=== PATIENT | female | born 1985 | race Caucasian/White ===

== ENCOUNTER 2023-04-11 23:01 | Emergency (ER) | payer MEDICAID, SELFPAY ==
[2023-04-11 23:02] VITALS: BP 133/85; PULSE 86; RESP 16; TEMP 36.7; O2SAT 95; BMI 26.4
--- NOTE | 2023-04-11 23:45 | HMH.EDGENADL ---
Discharge Plan Disposition Patient Disposition: Home, Self-Care Referrals Follow up/Referrals: Provider,Referral, MD [Primary Care Provider] - See instructions Activity Restrictions/Add. Instructions Additional Instructions/Restrictions: Please follow-up with your primary care provider. Please return to the emergency department if you develop any new or worsening symptoms or become concerned for your health. Clinical Impressions Clinical Impression: Finger laceration Qualifiers: Encounter type: initial encounter Finger: middle finger Damage to nail status: without damage Foreign body presence: without foreign body Laterality: left Qualified Code(s): S61.213A - Laceration without foreign body of left middle finger without damage to nail, initial encounter Stand Alone Forms Stand Alone Forms: Work/School Release Instructions Patient Instructions: DI for Laceration Repair Discharge ED Provider: Nick Neil Adult HPI General Chief complaint: Wound/Laceration Stated complaint: Ao12/18 finger lac Time Seen by Provider: 04/11/23 23:10 Mode of Arrival: Ambulatory Source of Information: Patient Limitations: No Limitations Description of Symptoms (Recalled from ER Triage Doc. by RN): pt reports trying to open pack of cheese with a knife and it slipped and cut left middle finger, bleeding controlled History of Present Illness HPI narrative: Patient reports that she cut her left middle finger with a knife while trying to open cheese. Denies any other injuries. Hemostatic on presentation Related Data Allergies Allergy/AdvReac Type Severity Reaction Status Date / Time Iodinated Contrast Media Allergy Verified 04/11/23 23:15 Penicillins Allergy Verified 04/11/23 23:15 [facility] Disclaimer: The information contained in this section may have been updated after the patient was seen, as this information can be updated by other users. Social History Smoking Status: Current every day smoker alcohol intake: never current occupational status: employed Travel in the last 8 weeks: None ROS Obtained: Yes All systems reviewed & no additional complaints except as documented Physical Exam General General appearance: alert and in no apparent distress Head Head exam: atraumatic and normocephalic Eye Eye exam: Present normal appearance, PERRL and EOMI ENT ENT exam: Present normal oropharynx and normal external ear exam Neck Neck exam: Present normal inspection and full ROM Chest Chest inspection: Present normal inspection and symmetric chest wall rise; Absent tenderness Respiratory Respiratory exam: Present normal lung sounds bilaterally; Absent respiratory distress Cardiovascular Cardiovascular exam: Present regular rate and normal rhythm Abdominal Exam Abdominal exam: Present soft; Absent distention, tenderness or guarding Extremities Exam Extremities exam: Present other (Fairly superficial laceration to the radial aspect of the mid left third distal phalanx. Wound explored, no evidence of foreign body or involvement of the deep structures. Intact neurovascular and tendon exam.); Absent edema or joint swelling Back Exam Back exam: Present normal inspection; Absent tenderness Neurological Exam Neurological exam: Present alert and oriented X3; Absent motor sensory deficit Psychiatric Psychiatric exam: Present normal affect and normal mood Skin Skin exam: Present warm, dry and normal color Lymphatic Lymphatic Findings: no adenopathy Medical Decision Making Medical Records Medical records reviewed: Yes I reviewed the patient's medical records. [place] Inquiry Pt receiving controlled substance: No [place] was queried for this patient: No Vital Signs: 04/11/23 23:02 04/12/23 00:05 Temperature 98.1 F 97.5 F L Temperature Source Oral Oral Pulse Rate 72 Pulse Rate [Right] 86 Respiratory Rate 16 16 Blood Pressure 136/82 Blood Pressure [Right Arm] 133/85 Blood Pressure Mean [Right Arm]
[2023-04-12 00:05] VITALS: BP 136/82; PULSE 72; RESP 16; TEMP 36.4; O2SAT 98
== END 2023-04-12 00:07 | disposition home or self-care (01) ==
PROVIDERS: Emergency Provider Emergency Medicine
DX: S61.213A Laceration without foreign body of left middle finger without damage to nail, initial encounter (principal); F17.200 Nicotine dependence, unspecified, uncomplicated; W26.0XXA Contact with knife, initial encounter
CPT/HCPCS: 12001; 90471; 90715; 99283

== ENCOUNTER 2023-04-12 15:51 | Emergency (ER) | payer MEDICAID, SELFPAY ==
[2023-04-12 16:55] VITALS: BP 142/98; PULSE 88; RESP 18; TEMP 36.8; O2SAT 97; BMI 26.4
--- NOTE | 2023-04-12 17:37 | EXP.UTC ---
Discharge Plan Disposition Patient Disposition: Home, Self-Care Condition: Good Prescriptions Prescriptions: New ibuprofen 600 mg tablet 600 mg PO QID PRN (Reason: pain) Qty: 30 0RF Referrals Follow up/Referrals: Provider,Referral, MD [Primary Care Provider] - See instructions Activity Restrictions/Add. Instructions Additional Instructions/Restrictions: Note for yesterday and today provided Clinical Impressions Clinical Impression: Pain of ovary Stand Alone Forms Stand Alone Forms: Work/School Release Instructions Patient Instructions: DI for Abdominal Pain-Adult Discharge ED Provider: Swathi Black [facility] HPI General Stated complaint: rt side pain, BURNS Mode of Arrival: Ambulatory Source of Information: Patient Limitations: No Limitations Time Seen by Provider: 04/12/23 17:20 Description of Symptoms (Recalled from Triage Doc. by RN): Right pelvic pain , and BURNS HEENT Symptoms (Recalled from RN notes): Yes Resp Symptoms (Recalled from RN notes): No Skin Symptoms (Recalled from RN notes): No MS Symptoms (Recalled from RN notes): No Functional Status (Recalled from RN notes): n/a History of Present Illness Provider Complaint: Pt reports that she has had right sided ovary pain for the past 2 days. She reports that she often has cysts that rupture. She states that she went to the ER yesterday, but left as they were too busy. She states that she went back to the ER last night as she cut her finger and had to have it glued. She reports that she did not tell them about the pelvic pain as she forgot. Related Data Previous Rx's Medication Instructions Recorded ibuprofen 600 mg tablet 600 mg PO QID PRN pain #30 tabs 04/12/23 Allergies Allergy/AdvReac Type Severity Reaction Status Date / Time Iodinated Contrast Media Allergy Verified 04/12/23 17:04 Penicillins Allergy Verified 04/12/23 17:04 Worker's Comp Is this a Worker's Comp case?: No [facility] Disclaimer: The information contained in this section may have been updated after the patient was seen, as this information can be updated by other users. Medical History (Updated 04/12/23 @ 17:44 by Swathi Black APRN) Anxiety Asthma GERD (gastroesophageal reflux disease) Surgical History (Updated 04/12/23 @ 17:07 by Tosin Kulkarni RN) History of delivery History of tonsillectomy Social History (Updated 04/12/23 @ 03:40 by Nick Neil MD) Smoking Status: Current every day smoker alcohol intake: never current occupational status: employed Travel in the last 8 weeks: None ROS Obtained: Yes All systems reviewed & no additional complaints except as documented Constitutional Constitutional: Reports system reviewed and no additional complaints, except as documented and Reports headache(s) Eyes Eyes: Reports system reviewed and no additional complaints, except as documented ENT Ears, Nose, Mouth, and Throat: Reports system reviewed and no additional complaints, except as documented and Reports headache(s) Cardiovascular Cardiovascular: Reports system reviewed and no additional complaints, except as documented Respiratory Respiratory: Reports system reviewed and no additional complaints, except as documented Gastrointestinal Gastrointestingal: Reports system reviewed and no additional complaints, except as documented Genitourinary Female Genitourinary: Reports system reviewed and no additional complaints, except as documented and Reports pelvic pain Musculoskeletal Musculoskeletal: Reports system reviewed and no additional complaints, except as documented Integumentary/Breasts Skin/Breast: Reports system reviewed and no additional complaints, except as documented Neurologic Neurologic: Reports system reviewed and no additional complaints, except as documented and Reports headache(s) Endocrine Endocrine: Reports system reviewed and no additional complaints, except as documented Hematologic/Lymphatic Henatologic/Lymp
[2023-04-12 17:57] VITALS: BP 135/79; PULSE 88; RESP 18; TEMP 36.8; O2SAT 97
== END 2023-04-12 17:55 | disposition home or self-care (01) ==
PROVIDERS: Emergency Provider Nurse Practitioner Family
DX: R10.2 Pelvic and perineal pain (principal); N94.89 Other specified conditions associated with female genital organs and menstrual cycle; R51.9 Headache, unspecified; F17.210 Nicotine dependence, cigarettes, uncomplicated; K21.9 Gastro-esophageal reflux disease without esophagitis; J45.909 Unspecified asthma, uncomplicated
CPT/HCPCS: 99204; 99212; G0463

== ENCOUNTER 2023-05-23 12:30 | Emergency (ER) | payer MEDICAID, SELFPAY ==
[2023-05-23 13:00] VITALS: BP 140/89; PULSE 68; RESP 19; TEMP 36.9; O2SAT 99
[2023-05-23 13:05] VITALS: BP 140/89; PULSE 68; RESP 19; TEMP 36.9; O2SAT 99; BMI 27.9
--- NOTE | 2023-05-23 13:16 | EXP.UTC ---
Discharge Plan Disposition Patient Disposition: Home, Self-Care Condition: Good Prescriptions Prescriptions: New ondansetron 4 mg tablet,disintegrating 4 mg PO Q8H PRN (Reason: nausea and vomiting) Qty: 10 0RF No Action sertraline 25 mg tablet 50 mg PO DAILY Qty: 90 0RF Slynd 4 mg (28) tablet 1 tab PO DAILY Qty: 28 12RF esomeprazole magnesium [Nexium] 20 mg capsule,delayed release(DR/EC) 20 mg PO DAILY Qty: 90 0RF Referrals Follow up/Referrals: Twyla Childs APRN [Primary Care Provider] - See instructions Activity Restrictions/Add. Instructions Additional Instructions/Restrictions: Drink extra fluids with and between meals. If you have difficulty drinking, try very small amounts of water or suck on ice chips. ? Avoid fruit juices, as these do not replace minerals and can actually increase diarrhea. ? Children and adults can use sports drinks to replenish electrolytes. Younger children and infants should use products formulated for children, like oral rehydration solutions. ? Eat food in small amounts and let your stomach recover. ? Get lots of rest. You may feel tired or weak. ? No greasy or fried foods for the next 24-48 hours BRAT diet Bananas Rice Apples and Bonesteel ? Make sure to drink plenty of liquids ? Return if needed ? Straight to ER if any life threatening symptoms ? Zofran as prescribed ? Follow up with family doctor in the next 48-72 hours if no improvement or any worsening of symptoms Clinical Impressions Clinical Impression: Nausea vomiting and diarrhea Stand Alone Forms Stand Alone Forms: Work/School Release Instructions Patient Instructions: Nausea and Vomiting-Adult, Diarrhea Discharge ED Provider: Jennifer Wilder [facility] General Stated complaint: vomiting, diarrea Mode of Arrival: Ambulatory Source of Information: Patient Limitations: No Limitations Time Seen by Provider: 05/23/23 13:16 Description of Symptoms (Recalled from Triage Doc. by RN): PATIENT C/O VOMITING AND DIARRHEA SINCE LAST NIGHT HEENT Symptoms (Recalled from RN notes): No Resp Symptoms (Recalled from RN notes): No Skin Symptoms (Recalled from RN notes): No MS Symptoms (Recalled from RN notes): No Functional Status (Recalled from RN notes): WNL History of Present Illness Provider Complaint: Patient states that she started last night with N/V/D States that she wasnt able to go to work this morning and they told her that she had to get a doctors note so she came in States last time she vomited was last night but still having some diarrhea Related Data Previous Rx's Medication Instructions Recorded esomeprazole magnesium 20 mg 20 mg PO DAILY #90 caps 04/26/23 capsule,delayed release (Nexium) Slynd 4 mg (28) tablet 1 tab PO DAILY #28 tabs 05/19/23 (drospirenone (contraceptive)) sertraline 25 mg tablet 50 mg PO DAILY #90 tabs 05/19/23 ondansetron 4 mg disintegrating 4 mg PO Q8H PRN nausea and 05/23/23 tablet vomiting #10 tabs Allergies Allergy/AdvReac Type Severity Reaction Status Date / Time latex Allergy Mild Rash Verified 05/19/23 13:12 Iodinated Contrast Media Allergy Verified 05/19/23 13:12 Penicillins Allergy Verified 05/19/23 13:12 Worker's Comp Is this a Worker's Comp case?: No [facility] Disclaimer: The information contained in this section may have been updated after the patient was seen, as this information can be updated by other users. Medical History Abnormal uterine bleeding Anxiety Asthma Finger laceration GERD (gastroesophageal reflux disease) Surgical History History of delivery History of tonsillectomy Family History Mother Hypertension Father , age 60 Hypertension COPD (chronic obstructive pulmonary disease) CHF (congestive heart failure) Social History Smoking Status: Current every day smoker alcohol intake: never current occupational status: employed Travel in the last 8 weeks: None ROS Obtained: Yes All systems reviewed & no additional complaints except as documented and Yes Systems reviewed as appropriate & no additional complaints except as documented Constitutional Constitutional: Reports system reviewed and no additional complaints, except as documented and Reports as per HPI ENT Ears, Nose, Mouth, and Throat: Reports system reviewed and no additional complaints, except as documented and Reports as per HPI Cardiovascular Cardiovascular: Reports system reviewed and no additional complaints, except as documented and Reports as per HPI Respiratory Respiratory: Reports system reviewed and no additional complaints, except as documented and Reports as per HPI Gastrointestinal Gastrointestingal: Reports system reviewed and no additional complaints, except as documented, as per HPI, diarrhea, nausea and vomiting; Denies abdominal pain Physical Exam General General appearance: alert and in no apparent distress ENT ENT exam: Present mucous membranes moist Respiratory Respiratory exam: Present normal lung sounds bilaterally; Absent respiratory distress or wheezes Cardiovascular Cardiovascular exam: Present regular rate, normal rhythm and normal heart sounds Abdominal Exam Abdominal exam: Present soft and normal bowel sounds; Absent distention or tenderness Neurological Exam Neurological exam: Present alert, oriented X3 and normal gait Medical Decision Making [place] Inquiry Pt receiving controlled substance: No [place] was queried for this patient: No Vital Signs: 05/23/23 13:05 Temperature 98.5 F Temperature Source Oral Pulse Rate [Left Brachial] 68 Respiratory Rate 19 Blood Pressure [Left Arm] 140/89 Blood Pressure Mean [Left Arm] 106 Blood Pressure Source [Left Arm] Automatic Cuff Blood Pressure Position [Left Arm] Sitting 02 Sat by Pulse Oximetry 99 Oxygen Delivery Method Room Air Medical Decision Narrative: Patient states that she has taken zofran without complications or reactions
== END 2023-05-23 13:33 | disposition home or self-care (01) ==
PROVIDERS: Emergency Provider Nurse Practitioner; PCP Nurse Practitioner Family
DX: R11.2 Nausea with vomiting, unspecified (principal); R19.7 Diarrhea, unspecified; K21.9 Gastro-esophageal reflux disease without esophagitis; F17.210 Nicotine dependence, cigarettes, uncomplicated
CPT/HCPCS: 99212; 99214; G0463

== ENCOUNTER 2023-05-25 15:42 | Emergency (ER) | payer MEDICAID, SELFPAY ==
--- NOTE | 2023-05-25 15:48 | EXP.UTC ---
Discharge Plan Disposition Patient Disposition: Home, Self-Care Condition: Good Prescriptions Prescriptions: New promethazine 25 mg tablet 25 mg PO TID PRN (Reason: nausea and vomiting) Qty: 20 0RF methylprednisolone 4 mg Tablets,Dose Pack 4 mg PO DIRECTED 6 Days Qty: 21 0RF Rx Instructions: Take 1 pack as directed for 6 days No Action sertraline 25 mg tablet 50 mg PO DAILY Qty: 90 0RF Slynd 4 mg (28) tablet 1 tab PO DAILY Qty: 28 12RF esomeprazole magnesium [Nexium] 20 mg capsule,delayed release(DR/EC) 20 mg PO DAILY Qty: 90 0RF Referrals Follow up/Referrals: Twyla Childs APRN [Primary Care Provider] - See instructions Activity Restrictions/Add. Instructions Additional Instructions/Restrictions: Start listing zofran (ondesetron) on your allergy list. Stop taking the zofran. I sent in a prescription for promethazine (phenergran) if you still need medication for nausea. Follow up with your regular doctor. GO TO THE ER FOR ANY WORSENING SYMPTOMS OR CONCERNS Clinical Impressions Clinical Impression: Adverse drug reaction, Allergic reaction Stand Alone Forms Stand Alone Forms: Work/School Release Instructions Patient Instructions: DI for Adverse Drug Reaction -- Allergic Discharge ED Provider: Waylon Bustamante [facility] General Stated complaint: rash Time Seen by Provider: 05/25/23 15:47 History of Present Illness Provider Complaint: She was diagnosed with gastroenteritis 2 days ago. She was prescribed zofran for nausea. She states that after she started taking the zofran she started developing an itchy rash on her body. She states that her gastroenteritis symptoms have resolved. She denies any shortness of breath, chest pain, mouth or throat swelling. Related Data Previous Rx's Medication Instructions Recorded esomeprazole magnesium 20 mg 20 mg PO DAILY #90 caps 04/26/23 capsule,delayed release (Nexium) Slynd 4 mg (28) tablet 1 tab PO DAILY #28 tabs 05/19/23 (drospirenone (contraceptive)) sertraline 25 mg tablet 50 mg PO DAILY #90 tabs 05/19/23 methylprednisolone 4 mg tablets in 4 mg PO DIRECTED 6 days #21 tabs 05/25/23 a dose pack promethazine 25 mg tablet 25 mg PO TID PRN nausea and 05/25/23 vomiting #20 tabs Allergies Allergy/AdvReac Type Severity Reaction Status Date / Time latex Allergy Mild Rash Verified 05/25/23 16:38 ondansetron Allergy Mild Rash Verified 05/25/23 16:57 Iodinated Contrast Media Allergy Verified 05/25/23 16:38 Penicillins Allergy Verified 05/25/23 16:38 [facility] Disclaimer: The information contained in this section may have been updated after the patient was seen, as this information can be updated by other users. Medical History Abnormal uterine bleeding Anxiety Asthma Finger laceration GERD (gastroesophageal reflux disease) Surgical History History of delivery History of tonsillectomy Family History Mother Hypertension Father , age 60 Hypertension COPD (chronic obstructive pulmonary disease) CHF (congestive heart failure) Social History Smoking Status: Current every day smoker alcohol intake: never current occupational status: employed Travel in the last 8 weeks: None ROS Obtained: Yes All systems reviewed & no additional complaints except as documented Constitutional Constitutional: Denies chills and Denies fever(s) Eyes Eyes: Denies eye discharge ENT Ears, Nose, Mouth, and Throat: Denies dizziness, Denies otalgia and Denies sore throat Cardiovascular Cardiovascular: Denies chest pain Respiratory Respiratory: Denies shortness of breath, Denies chest congestion, Denies cough, Denies stridor and Denies wheezing Gastrointestinal Gastrointestingal: Denies nausea or vomiting Musculoskeletal Musculoskeletal: Reports system reviewed and no additional complaints, except as documented and Denies arthralgias Integumentary/Breasts Skin/Breast: Reports as per HPI and Reports rash Neurologic Neurologic: Denies dizziness and Denies paresthesias Allergic/Immunologic Allergic/Immunologic: Denies wheezing Physical Exam General General appearance: alert and in no apparent distress Head Head exam: atraumatic, normocephalic and normal inspection Eye Eye exam: Present normal appearance, PERRL and EOMI ENT ENT exam: Present normal exam, normal oropharynx, mucous membranes moist, TM's normal bilaterally and normal external ear exam Neck Neck exam: Present normal inspection, full ROM and trachea midline; Absent meningismus or lymphadenopathy Chest Chest inspection: Present normal inspection and symmetric chest wall rise; Absent tenderness Respiratory Respiratory exam: Present normal lung sounds bilaterally; Absent respiratory distress Cardiovascular Cardiovascular exam: Present regular rate and normal rhythm; Absent JVD Abdominal Exam Abdominal exam: Present soft and normal bowel sounds; Absent distention, tenderness or guarding Extremities Exam Extremities exam: Present normal inspection, full ROM and normal capillary refill; Absent calf tenderness Back Exam Back exam: Present normal inspection; Absent tenderness Neurological Exam Neurological exam: Present alert and oriented X3 Psychiatric Psychiatric exam: Present normal affect and normal mood Skin Skin exam: Present rash (She has a maculopapular rash on her trunk, neck, and legs. no open wounds, no drainage. ) Lymphatic Lymphatic Findings: no adenopathy Medical Decision Making Medical Records Medical records reviewed: No I reviewed the patient's medical records. [place] Inquiry Pt receiving controlled substance: No
[2023-05-25 16:30] VITALS: BP 116/74; PULSE 84; RESP 18; TEMP 36.8; O2SAT 95; BMI 27.8
[2023-05-25 17:10] VITALS: BP 116/74; PULSE 84; RESP 18; TEMP 36.8; O2SAT 95
== END 2023-05-25 17:10 | disposition home or self-care (01) ==
PROVIDERS: Emergency Provider Nurse Practitioner Family; PCP Nurse Practitioner Family
DX: T50.995A Adverse effect of other drugs, medicaments and biological substances, initial encounter (principal); L50.0 Allergic urticaria; R11.0 Nausea
CPT/HCPCS: 99212; 99214; G0463

== ENCOUNTER 2023-06-09 11:38 | Emergency (ER) | payer MEDICAID, SELFPAY ==
[2023-06-09 11:45] VITALS: BP 145/80; PULSE 80; RESP 21; TEMP 36.8; O2SAT 95; BMI 27.1
--- NOTE | 2023-06-09 11:57 | EXP.UTC ---
Discharge Plan Disposition Patient Disposition: Home, Self-Care Condition: Good Prescriptions Prescriptions: New ibuprofen [ibuprofen] 600 mg tablet 600 mg PO Q6HP PRN (Reason: Mild Pain) Qty: 30 0RF No Action sertraline 25 mg tablet 50 mg PO DAILY Qty: 90 0RF Slynd 4 mg (28) tablet 1 tab PO DAILY Qty: 28 12RF esomeprazole magnesium [Nexium] 20 mg capsule,delayed release(DR/EC) 20 mg PO DAILY Qty: 90 0RF promethazine 25 mg tablet 25 mg PO TID PRN (Reason: nausea and vomiting) Qty: 20 0RF methylprednisolone 4 mg Tablets,Dose Pack 4 mg PO DIRECTED 6 Days Qty: 21 0RF Rx Instructions: Take 1 pack as directed for 6 days Referrals Follow up/Referrals: Robbie Nunez DO [Staff Physician] - See instructions Twyla Childs APRN [Primary Care Provider] - See instructions Activity Restrictions/Add. Instructions Additional Instructions/Restrictions: Rest the extremities, Elevate the extremities as tolerated while you are resting. Take ibuprofen for pain. I sent in a prescription to your pharmacy. Follow up with Dr. Nunez (orthopedics) if you continue to have symptoms. I put in a referral but you need to call his office and schedule an appointment. Follow up with your regular doctor. GO TO THE ER FOR ANY WORSENING SYMPTOMS Clinical Impressions Clinical Impression: Right thigh pain, Left knee pain Stand Alone Forms Stand Alone Forms: Work/School Release Instructions Patient Instructions: DI for Leg Pain, Ibuprofen Discharge ED Provider: Waylon Bustamante [facility] General Stated complaint: pain in upper thigh rt leg, and left knee Mode of Arrival: Ambulatory Source of Information: Patient Limitations: No Limitations Time Seen by Provider: 06/09/23 11:57 Description of Symptoms (Recalled from Triage Doc. by RN): PATIENT STATES SHE WOKE UP YESTERDAY MORNING WITH PAIN/TIGHTNESS IN LEFT KNEE AND RIGHT UPPER LEG. NO KNOWN INJURY HEENT Symptoms (Recalled from RN notes): No Resp Symptoms (Recalled from RN notes): No Skin Symptoms (Recalled from RN notes): No MS Symptoms (Recalled from RN notes): Yes Functional Status (Recalled from RN notes): WNL History of Present Illness Provider Complaint: She states that since yesterday she has had left knee and right anterior thigh pain. She denies any falls or known injuries, but she has been having to work harder than normal and lift more at her job. She denies any other complaints. Related Data Previous Rx's Medication Instructions Recorded esomeprazole magnesium 20 mg 20 mg PO DAILY #90 caps 04/26/23 capsule,delayed release (Nexium) Slynd 4 mg (28) tablet 1 tab PO DAILY #28 tabs 05/19/23 (drospirenone (contraceptive)) sertraline 25 mg tablet 50 mg PO DAILY #90 tabs 05/19/23 methylprednisolone 4 mg tablets in 4 mg PO DIRECTED 6 days #21 tabs 05/25/23 a dose pack promethazine 25 mg tablet 25 mg PO TID PRN nausea and 05/25/23 vomiting #20 tabs ibuprofen 600 mg tablet 600 mg PO Q6HP PRN Mild Pain #30 06/09/23 tabs Allergies Allergy/AdvReac Type Severity Reaction Status Date / Time latex Allergy Mild Rash Verified 05/25/23 16:38 ondansetron Allergy Mild Rash Verified 05/25/23 16:57 Iodinated Contrast Media Allergy Verified 05/25/23 16:38 Penicillins Allergy Verified 05/25/23 16:38 Worker's Comp Is this a Worker's Comp case?: No [facility] Disclaimer: The information contained in this section may have been updated after the patient was seen, as this information can be updated by other users. Medical History Abnormal uterine bleeding Anxiety Asthma Finger laceration GERD (gastroesophageal reflux disease) Surgical History History of delivery History of tonsillectomy Family History Mother Hypertension Father , age 60 Hypertension COPD (chronic obstructive pulmonary disease) CHF (congestive heart failure) Social History Smoking Status: Current every day smoker alcohol intake: never current occupational status: employed Travel in the last 8 weeks: None ROS Obtained: Yes All systems reviewed & no additional complaints except as documented Constitutional Constitutional: Denies chills and Denies fever(s) Eyes Eyes: Denies eye discharge ENT Ears, Nose, Mouth, and Throat: Denies dizziness, Denies otalgia and Denies sore throat Cardiovascular Cardiovascular: Denies chest pain Respiratory Respiratory: Denies shortness of breath, Denies chest congestion, Denies cough, Denies stridor and Denies wheezing Gastrointestinal Gastrointestingal: Denies nausea or vomiting Musculoskeletal Musculoskeletal: Reports as per HPI Integumentary/Breasts Skin/Breast: Denies rash Neurologic Neurologic: Denies dizziness and Denies paresthesias Allergic/Immunologic Allergic/Immunologic: Denies wheezing Physical Exam General General appearance: alert and in no apparent distress Head Head exam: atraumatic, normocephalic and normal inspection Eye Eye exam: Present normal appearance, PERRL and EOMI ENT ENT exam: Present normal exam, normal oropharynx, mucous membranes moist, TM's normal bilaterally and normal external ear exam Neck Neck exam: Present normal inspection, full ROM and trachea midline; Absent meningismus or lymphadenopathy Chest Chest inspection: Present normal inspection and symmetric chest wall rise; Absent tenderness Respiratory Respiratory exam: Present normal lung sounds bilaterally; Absent respiratory distress Cardiovascular Cardiovascular exam: Present regular rate and normal rhythm; Absent JVD Abdominal Exam Abdominal exam: Present soft and normal bowel sounds; Absent distention, tenderness or guarding Extremities Exam Extremities exam: Present normal inspection, full ROM and normal capillary refill; Absent calf tenderness Expanded Lower Extremity Exam Left: Hip/Pelvis exam: Present normal inspection and full ROM; Absent tenderness Upper leg exam: Present normal inspection and full ROM; Absent tenderness Knee exam: Present normal inspection, full ROM and knee extension intact; Absent tenderness Lower leg exam: Present normal inspection, full ROM and Achilles tendon intact; Absent tenderness or Homans' sign Ankle exam: Present normal inspection and full ROM; Absent tenderness Foot/toe exam: Present normal inspection and full ROM; Absent tenderness Neurovascular/Tendon exam: Present normal capillary refill; Absent pulse deficit, motor deficit, sensory deficit, tendon deficit or extremity cold to touch Gait: observed and normal Right: Hip/Pelvis exam: Present normal inspection and full ROM; Absent tenderness Upper leg exam: Present normal inspection and full ROM; Absent tenderness Knee exam: Present normal inspection, full ROM and knee extension intact; Absent tenderness Lower leg exam: Present normal inspection, full ROM and Achilles tendon intact; Absent tenderness or Homans' sign Ankle exam: Present normal inspection and full ROM; Absent tenderness Foot/toe exam: Present normal inspection and full ROM; Absent tenderness Neurovascular/Tendon exam: Present normal capillary refill; Absent pulse deficit, motor deficit, sensory deficit, tendon deficit or extremity cold to touch Gait: observed and normal Back Exam Back exam: Present normal inspection; Absent tenderness Neurological Exam Neurological exam: Present alert and oriented X3 Psychiatric Psychiatric exam: Present normal affect and normal mood Skin Skin exam: Present warm, dry, intact and normal color Lymphatic Lymphatic Findings: no adenopathy Medical Decision Making Medical Records Medical records reviewed: No I reviewed the patient's medical records. [place] Inquiry Pt receiving controlled substance: No Vital Signs: 06/09/23 11:45 Temperature 98.3 F Temperature Source Oral Pulse Rate [Left Brachial] 80 Respiratory Rate 21 Blood Pressure [Left Arm] 145/80 H Blood Pressure Mean [Left Arm] 101 Blood Pressure Source [Left Arm] Automatic Cuff Blood Pressure Position [Left Arm] Sitting 02 Sat by Pulse Oximetry 95 Oxygen Delivery Method Room Air
[2023-06-09 12:40] VITALS: BP 145/80; PULSE 80; RESP 21; TEMP 36.8; O2SAT 95
== END 2023-06-09 12:43 | disposition home or self-care (01) ==
PROVIDERS: Emergency Provider Nurse Practitioner Family; PCP Nurse Practitioner Family
DX: M25.562 Pain in left knee (principal); M79.651 Pain in right thigh; F17.210 Nicotine dependence, cigarettes, uncomplicated; K21.9 Gastro-esophageal reflux disease without esophagitis
CPT/HCPCS: 99212; 99214; G0463

== ENCOUNTER 2023-07-07 17:57 | Emergency (ER) | payer MEDICAID, SELFPAY ==
[2023-07-07 18:20] VITALS: BP 128/76; PULSE 81; RESP 20; TEMP 37.1; O2SAT 97; BMI 27.1
--- NOTE | 2023-07-07 18:31 | EXP.UTC ---
Discharge Plan Disposition Patient Disposition: Home, Self-Care Condition: Good Prescriptions Prescriptions: New ibuprofen [IBU] 800 mg tablet 800 mg PO Q8HP PRN (Reason: Moderate Pain) Qty: 30 0RF benzonatate 100 mg capsule 100 mg PO TIDP PRN (Reason: Cough) Qty: 30 0RF promethazine 25 mg tablet 25 mg PO TID PRN (Reason: nausea and vomiting) Qty: 20 0RF No Action sertraline 25 mg tablet 50 mg PO DAILY Qty: 90 0RF Slynd 4 mg (28) tablet 1 tab PO DAILY Qty: 28 12RF esomeprazole magnesium [Nexium] 20 mg capsule,delayed release(DR/EC) 20 mg PO DAILY Qty: 90 0RF promethazine 25 mg tablet 25 mg PO TID PRN (Reason: nausea and vomiting) Qty: 20 0RF ibuprofen [ibuprofen] 600 mg tablet 600 mg PO Q6HP PRN (Reason: Mild Pain) Qty: 30 0RF Referrals Follow up/Referrals: Twyla Childs APRN [Primary Care Provider] - See instructions Activity Restrictions/Add. Instructions Additional Instructions/Restrictions: Drink plenty of fluids. Water or an electrolyte sports drink like gatorade would be best. Take tylenol or ibuprofen for pain or fever. Take the medications as directed. Follow up with your regular doctor. GO TO THE ER FOR ANY WORSENING SYMPTOMS Clinical Impressions Clinical Impression: Acute viral syndrome, Gastroenteritis Stand Alone Forms Stand Alone Forms: Work/School Release Instructions Patient Instructions: DI for Viral Gastroenteritis -- Adult, Promethazine Discharge ED Provider: Waylon Bustamante [facility] General Stated complaint: fever,vomiting Mode of Arrival: Ambulatory Source of Information: Patient Limitations: No Limitations Time Seen by Provider: 07/07/23 18:31 Description of Symptoms (Recalled from Triage Doc. by RN): PATIENT C/O VOMITING AND FEVER THAT STARTED THIS MORNING HEENT Symptoms (Recalled from RN notes): No Resp Symptoms (Recalled from RN notes): No Skin Symptoms (Recalled from RN notes): No MS Symptoms (Recalled from RN notes): No Functional Status (Recalled from RN notes): WNL History of Present Illness Provider Complaint: She states that since last night she has had low grade fever, malaise, chills, body aches, and n/v/d. She denies cough, sinus congestion, and chest congestion. Related Data Previous Rx's Medication Instructions Recorded esomeprazole magnesium 20 mg 20 mg PO DAILY #90 caps 04/26/23 capsule,delayed release (Nexium) Slynd 4 mg (28) tablet 1 tab PO DAILY #28 tabs 05/19/23 (drospirenone (contraceptive)) sertraline 25 mg tablet 50 mg (2 x 25 mg) PO DAILY #90 tabs 05/19/23 promethazine 25 mg tablet 25 mg PO TID PRN nausea and 05/25/23 vomiting #20 tabs ibuprofen 600 mg tablet 600 mg PO Q6HP PRN Mild Pain #30 06/09/23 tabs benzonatate 100 mg capsule 100 mg PO TIDP PRN Cough #30 caps 07/07/23 ibuprofen 800 mg tablet (IBU) 800 mg PO Q8HP PRN Moderate Pain 07/07/23 #30 tabs promethazine 25 mg tablet 25 mg PO TID PRN nausea and 07/07/23 vomiting #20 tabs Allergies Allergy/AdvReac Type Severity Reaction Status Date / Time latex Allergy Mild Rash Verified 06/23/23 13:10 ondansetron Allergy Mild Rash Verified 06/23/23 13:10 Iodinated Contrast Media Allergy Verified 06/23/23 13:10 Penicillins Allergy Verified 06/23/23 13:10 Worker's Comp Is this a Worker's Comp case?: No [facility] Disclaimer: The information contained in this section may have been updated after the patient was seen, as this information can be updated by other users. Medical History Abnormal uterine bleeding Anxiety Asthma Finger laceration GERD (gastroesophageal reflux disease) Surgical History History of delivery History of tonsillectomy Family History Mother Hypertension Father , age 60 Hypertension COPD (chronic obstructive pulmonary disease) CHF (congestive heart failure) Social History Smoking Status: Current every day smoker alcohol intake: never current occupational status: employed Travel in the last 8 weeks: None ROS Obtained: Yes All systems reviewed & no additional complaints except as documented Constitutional Constitutional: Denies chills, Denies fever(s) and Reports poor appetite ENT Ears, Nose, Mouth, and Throat: Denies dizziness and Denies sore throat Cardiovascular Cardiovascular: Denies dyspnea Respiratory Respiratory: Denies chest congestion, Denies cough and Denies dyspnea Gastrointestinal Gastrointestingal: Reports as per HPI, diarrhea, nausea and vomiting; Denies abdominal pain Genitourinary Female Genitourinary: Denies difficulty voiding, Denies dysuria, Denies hematuria, Denies urinary frequency, Denies urinary incontinence, Denies urinary hesitancy and Denies urinary urgency Musculoskeletal Musculoskeletal: Denies arthralgias Integumentary/Breasts Skin/Breast: Denies rash Neurologic Neurologic: Denies dizziness Physical Exam General General appearance: alert and in no apparent distress Head Head exam: atraumatic and normocephalic Eye Eye exam: Present normal appearance, PERRL and EOMI ENT ENT exam: Present normal exam, normal oropharynx, mucous membranes moist, TM's normal bilaterally and normal external ear exam Neck Neck exam: Present normal inspection, full ROM and trachea midline; Absent tenderness, meningismus or lymphadenopathy Chest Chest inspection: Present normal inspection and symmetric chest wall rise; Absent tenderness, rash or abscess Respiratory Respiratory exam: Present normal lung sounds bilaterally; Absent respiratory distress, wheezes or stridor Cardiovascular Cardiovascular exam: Present regular rate and normal rhythm; Absent irregular rhythm, systolic murmur, diastolic murmur or JVD Abdominal Exam Abdominal exam: Present soft and normal bowel sounds; Absent distention, tenderness, guarding, rebound, rigidity, psoas sign, obturator sign, heel tap sign, Heath's sign, Rovsing's sign or tenderness at McBurney's Point Extremities Exam Extremities exam: Present normal inspection and full ROM; Absent tenderness Back Exam Back exam: Present normal inspection and full ROM; Absent tenderness, CVA tenderness (R) or CVA tenderness (L) Neurological Exam Neurological exam: Present alert, oriented X3 and CN II-XII intact Psychiatric Psychiatric exam: Present normal affect and normal mood Skin Skin exam: Present warm, dry, intact and normal color Lymphatic Lymphatic Findings: no adenopathy Medical Decision Making Medical Records Medical records reviewed: No I reviewed the patient's medical records. [place] Inquiry Pt receiving controlled substance: No Vital Signs: 07/07/23 18:20 Temperature 98.7 F Temperature Source Oral Pulse Rate [Left Brachial] 81 Respiratory Rate 20 Blood Pressure [Left Arm] 128/76 Blood Pressure Mean [Left Arm] 93 Blood Pressure Source [Left Arm] Automatic Cuff Blood Pressure Position [Left Arm] Sitting 02 Sat by Pulse Oximetry 97 Oxygen Delivery Method Room Air Lab Data Lab results reviewed: Yes I reviewed the patient's lab results.
[2023-07-07 18:46] LABS: UTC Influenza A Antigen Negative (Negative); UTC Influenza B Antigen Negative (Negative)
[2023-07-07 18:52] VITALS: BP 128/76; PULSE 81; RESP 20; TEMP 37.1; O2SAT 97
== END 2023-07-07 19:08 | disposition home or self-care (01) ==
PROVIDERS: Emergency Provider Nurse Practitioner Family; PCP Nurse Practitioner Family
DX: K52.9 Noninfective gastroenteritis and colitis, unspecified (principal); R50.9 Fever, unspecified; B34.9 Viral infection, unspecified; R53.81 Other malaise; J45.909 Unspecified asthma, uncomplicated; K21.9 Gastro-esophageal reflux disease without esophagitis; F17.200 Nicotine dependence, unspecified, uncomplicated
CPT/HCPCS: 87804; 99212; 99214; G0463

== ENCOUNTER 2023-07-20 15:36 | Emergency (ER) | payer MEDICAID, SELFPAY ==
[2023-07-20 15:45] VITALS: BP 124/73; PULSE 92; RESP 18; TEMP 37.1; O2SAT 96; BMI 29.0
--- NOTE | 2023-07-20 16:02 | ED_ITS ---
Discharge Plan Disposition Patient Disposition: Home, Self-Care Condition: Good Prescriptions Prescriptions: No Action Slynd 4 mg (28) tablet 1 tab PO DAILY Qty: 28 12RF esomeprazole magnesium [Nexium] 20 mg capsule,delayed release(DR/EC) 20 mg PO DAILY Qty: 90 0RF sertraline 25 mg tablet 50 mg PO DAILY Qty: 180 3RF promethazine 25 mg tablet 25 mg PO TID PRN (Reason: nausea and vomiting) Qty: 20 0RF ibuprofen [IBU] 800 mg tablet 800 mg PO Q8HP PRN (Reason: Moderate Pain) Qty: 30 0RF benzonatate 100 mg capsule 100 mg PO TIDP PRN (Reason: Cough) Qty: 30 0RF promethazine 25 mg tablet 25 mg PO TID PRN (Reason: nausea and vomiting) Qty: 20 0RF ibuprofen [ibuprofen] 600 mg tablet 600 mg PO Q6HP PRN (Reason: Mild Pain) Qty: 30 0RF Referrals Follow up/Referrals: Twyla Childs APRN [Primary Care Provider] - See instructions Activity Restrictions/Add. Instructions Additional Instructions/Restrictions: GO straight to [facility] for further examination and evaluation Further care per [facility] Clinical Impressions Clinical Impression: Eye problem Stand Alone Forms Stand Alone Forms: Work/School Release Discharge ED Provider: Jennifer Wilder [facility] General Stated complaint: left eye pain and itch Mode of Arrival: Ambulatory Source of Information: Patient Limitations: No Limitations Time Seen by Provider: 07/20/23 16:02 Description of Symptoms (Recalled from Triage Doc. by RN): Pt's left eye is itchy, red, vasquez, and painful. HEENT Symptoms (Recalled from RN notes): Yes Resp Symptoms (Recalled from RN notes): No Skin Symptoms (Recalled from RN notes): No MS Symptoms (Recalled from RN notes): No Functional Status (Recalled from RN notes): n/a History of Present Illness Provider Complaint: Patient states her left eye was itchy and burning yesterday and today she noticed a red area on the inner corner of her left eye that had a small yellowish spot in it and it has been watering and burning all day Related Data Previous Rx's Medication Instructions Recorded esomeprazole magnesium 20 mg 20 mg PO DAILY #90 caps 04/26/23 capsule,delayed release (Nexium) Slynd 4 mg (28) tablet 1 tab PO DAILY #28 tabs 05/19/23 (drospirenone (contraceptive)) promethazine 25 mg tablet 25 mg PO TID PRN nausea and 05/25/23 vomiting #20 tabs ibuprofen 600 mg tablet 600 mg PO Q6HP PRN Mild Pain #30 06/09/23 tabs benzonatate 100 mg capsule 100 mg PO TIDP PRN Cough #30 caps 07/07/23 ibuprofen 800 mg tablet (IBU) 800 mg PO Q8HP PRN Moderate Pain 07/07/23 #30 tabs promethazine 25 mg tablet 25 mg PO TID PRN nausea and 07/07/23 vomiting #20 tabs sertraline 25 mg tablet 50 mg (2 x 25 mg) PO DAILY #180 07/17/23 tabs Allergies Allergy/AdvReac Type Severity Reaction Status Date / Time latex Allergy Mild Rash Verified 06/23/23 13:10 ondansetron Allergy Mild Rash Verified 06/23/23 13:10 Iodinated Contrast Media Allergy Verified 06/23/23 13:10 Penicillins Allergy Verified 06/23/23 13:10 Worker's Comp Is this a Worker's Comp case?: No [facility] Disclaimer: The information contained in this section may have been updated after the patient was seen, as this information can be updated by other users. Medical History Abnormal uterine bleeding Anxiety Asthma Finger laceration GERD (gastroesophageal reflux disease) Surgical History History of delivery History of tonsillectomy Family History Mother Hypertension Father , age 60 Hypertension COPD (chronic obstructive pulmonary disease) CHF (congestive heart failure) Social History Smoking Status: Current every day smoker alcohol intake: never current occupational status: employed Travel in the last 8 weeks: None ROS Obtained: Yes All systems reviewed & no additional complaints except as documented and Yes Systems reviewed as appropriate & no additional complaints except as documented Constitutional Constitutional: Reports system reviewed and no additional complaints, except as documented and Reports as per HPI Eyes Eyes: Reports system reviewed and no additional complaints, except as documented, Reports as per HPI, Reports irritation and Reports itchy eyes ENT Ears, Nose, Mouth, and Throat: Reports system reviewed and no additional complaints, except as documented and Reports as per HPI Cardiovascular Cardiovascular: Reports system reviewed and no additional complaints, except as documented and Reports as per HPI Respiratory Respiratory: Reports system reviewed and no additional complaints, except as documented and Reports as per HPI Allergic/Immunologic Allergic/Immunologic: Reports itchy eyes Physical Exam General General appearance: alert and in no apparent distress Eye Eye exam: Present other (red area noted on inner corner of the white of left eye with small blister like area noted that appears to have yellowish area inside blister reports vasquez, tender and itchy feeling) Respiratory Respiratory exam: Present normal lung sounds bilaterally; Absent respiratory distress or wheezes Cardiovascular Cardiovascular exam: Present regular rate, normal rhythm and normal heart sounds Neurological Exam Neurological exam: Present alert, oriented X3 and normal gait Medical Decision Making [place] Inquiry Pt receiving controlled substance: No [place] was queried for this patient: No Vital Signs: 07/20/23 15:45 Temperature 98.8 F Temperature Source Oral Pulse Rate [Right Radial] 92 H Respiratory Rate 18 Blood Pressure [Right Arm] 124/73 Blood Pressure Mean [Right Arm] 90 Blood Pressure Source [Right Arm] Automatic Cuff Blood Pressure Position [Right Arm] Sitting 02 Sat by Pulse Oximetry 96 Oxygen Delivery Method Room Air Medical Decision Narrative: Spoke with patient and contacted [facility] and they advised to have her come straight to the clinic to be evaluated asked patient and she agreed Patient dc'd from [id number] to go straight to [facility] for furhter evaluation and treatme nt
[2023-07-20 16:09] VITALS: BP 124/73; PULSE 97; RESP 18; TEMP 36.8; O2SAT 96
== END 2023-07-20 16:08 | disposition home or self-care (01) ==
PROVIDERS: Emergency Provider Nurse Practitioner; PCP Nurse Practitioner Family
DX: H57.12 Ocular pain, left eye (principal); F17.210 Nicotine dependence, cigarettes, uncomplicated; K21.9 Gastro-esophageal reflux disease without esophagitis
CPT/HCPCS: 99212; 99214; G0463

== ENCOUNTER 2023-09-05 17:24 | Emergency (ER) | payer MEDICAID, SELFPAY ==
[2023-09-05 17:40] VITALS: BP 135/84; PULSE 94; RESP 18; TEMP 37.2; O2SAT 95; BMI 26.4
--- NOTE | 2023-09-05 17:44 | EXP.UTC ---
Discharge Plan Disposition Patient Disposition: Home, Self-Care Condition: Good Prescriptions Prescriptions: New promethazine 25 mg tablet 25 mg PO TID PRN (Reason: nausea and vomiting) Qty: 15 0RF No Action Slynd 4 mg (28) tablet 1 tab PO DAILY Qty: 28 12RF sertraline 25 mg tablet 50 mg PO DAILY Qty: 180 3RF esomeprazole magnesium 20 mg capsule,delayed release(DR/EC) See Rx Instructions .ROUTE .COMPLEX Qty: 90 0RF Dose Instruction: TAKE 1 CAPSULE ORALLY ONCE DAILY Rx Instructions: TAKE 1 CAPSULE ORALLY ONCE DAILY Referrals Follow up/Referrals: Twyla Childs APRN [Primary Care Provider] - See instructions Activity Restrictions/Add. Instructions Additional Instructions/Restrictions: Drink plenty of fluids. Take tylenol or ibuprofen for pain or fever. Follow up with your regular doctor. GO TO THE ER FOR ANY WORSENING SYMPTOMS The promethazine (phenergran) will make you drowsy, so don't drive or operate heavy machinery after taking it. Clinical Impressions Clinical Impression: Gastroenteritis Stand Alone Forms Stand Alone Forms: Work/School Release Instructions Patient Instructions: Viral Gastroenteritis, DI for Viral Gastroenteritis -- Adult, Promethazine Discharge ED Provider: Waylon Bustamante [facility] General Stated complaint: upset stomach Time Seen by Provider: 09/05/23 17:44 History of Present Illness Provider Complaint: She states that since yesterday evening she has had n/v/d and abdominal cramping at times. She denies abdominal pain. Related Data Previous Rx's Medication Instructions Recorded Slynd 4 mg (28) tablet 1 tab PO DAILY #28 tabs 05/19/23 (drospirenone (contraceptive)) sertraline 25 mg tablet 50 mg (2 x 25 mg) PO DAILY #180 07/17/23 tabs esomeprazole magnesium 20 mg See Rx Instructions .Route 07/22/23 capsule,delayed release .COMPLEX #90 caps promethazine 25 mg tablet 25 mg PO TID PRN nausea and 09/05/23 vomiting #15 tabs Allergies Allergy/AdvReac Type Severity Reaction Status Date / Time latex Allergy Mild Rash Verified 09/05/23 17:50 ondansetron Allergy Mild Rash Verified 09/05/23 17:50 Iodinated Contrast Media Allergy Verified 09/05/23 17:50 Penicillins Allergy Verified 09/05/23 17:50 [facility] Disclaimer: The information contained in this section may have been updated after the patient was seen, as this information can be updated by other users. Medical History Abnormal uterine bleeding Anxiety Asthma Finger laceration GERD (gastroesophageal reflux disease) Surgical History History of delivery History of tonsillectomy Family History Mother Hypertension Father , age 60 Hypertension COPD (chronic obstructive pulmonary disease) CHF (congestive heart failure) Social History Smoking Status: Current every day smoker alcohol intake: never current occupational status: employed Travel in the last 8 weeks: None ROS Obtained: Yes All systems reviewed & no additional complaints except as documented Constitutional Constitutional: Denies chills, Denies fever(s) and Reports poor appetite ENT Ears, Nose, Mouth, and Throat: Denies dizziness and Denies sore throat Cardiovascular Cardiovascular: Denies dyspnea Respiratory Respiratory: Denies chest congestion, Denies cough and Denies dyspnea Gastrointestinal Gastrointestingal: Reports as per HPI, cramping, diarrhea, nausea and vomiting; Denies abdominal pain or hematochezia Genitourinary Female Genitourinary: Denies difficulty voiding, Denies dysuria, Denies hematuria, Denies urinary frequency, Denies urinary incontinence, Denies urinary hesitancy and Denies urinary urgency Musculoskeletal Musculoskeletal: Denies arthralgias Integumentary/Breasts Skin/Breast: Denies rash Neurologic Neurologic: Denies dizziness Physical Exam General General appearance: alert and in no apparent distress Head Head exam: atraumatic and normocephalic Eye Eye exam: Present normal appearance, PERRL and EOMI ENT ENT exam: Present normal exam, normal oropharynx, mucous membranes moist, TM's normal bilaterally and normal external ear exam Neck Neck exam: Present normal inspection, full ROM and trachea midline; Absent tenderness, meningismus or lymphadenopathy Chest Chest inspection: Present normal inspection and symmetric chest wall rise; Absent tenderness, rash or abscess Respiratory Respiratory exam: Present normal lung sounds bilaterally; Absent respiratory distress, wheezes or stridor Cardiovascular Cardiovascular exam: Present regular rate and normal rhythm; Absent irregular rhythm, systolic murmur, diastolic murmur or JVD Abdominal Exam Abdominal exam: Present soft and hyperactive bowel sounds; Absent distention, tenderness, guarding, rebound, rigidity, psoas sign, obturator sign, heel tap sign, Heath's sign, Rovsing's sign or tenderness at McBurney's Point Extremities Exam Extremities exam: Present normal inspection and full ROM; Absent tenderness Back Exam Back exam: Present normal inspection and full ROM; Absent tenderness, CVA tenderness (R) or CVA tenderness (L) Neurological Exam Neurological exam: Present alert, oriented X3 and CN II-XII intact Psychiatric Psychiatric exam: Present normal affect and normal mood Skin Skin exam: Present warm, dry, intact and normal color Lymphatic Lymphatic Findings: no adenopathy Medical Decision Making Medical Records Medical records reviewed: No I reviewed the patient's medical records. [place] Inquiry Pt receiving controlled substance: No Lab Data Lab results reviewed: Yes I reviewed the patient's lab results.
[2023-09-05 18:26] VITALS: BP 135/84; PULSE 94; RESP 18; TEMP 37.2; O2SAT 96
== END 2023-09-05 18:26 | disposition home or self-care (01) ==
PROVIDERS: Emergency Provider Nurse Practitioner Family; PCP Nurse Practitioner Family
DX: K52.9 Noninfective gastroenteritis and colitis, unspecified (principal); R10.819 Abdominal tenderness, unspecified site; R11.2 Nausea with vomiting, unspecified; F17.210 Nicotine dependence, cigarettes, uncomplicated
CPT/HCPCS: 99212; 99214; G0463

== ENCOUNTER 2024-01-12 13:00 | Outpatient (CLI) | payer MEDICAID, SELFPAY ==
--- NOTE | 2024-01-12 13:01 | US_ITS ---
PROCEDURE: US TRANSVAGINAL CLINICAL INDICATION: DUB COMPARISON: No exams were available for comparison FINDINGS: Transvaginal sonographic images of the pelvis were obtained. UTERUS: 8.3cm x 4.3cmx 3.7 cm anteverted with a combined endometrial thickness of 8mm. There are 2 small cystic areas at the scar. They measure 5.6 mm and 4.6 mm. LEFT OVARY: 3.1cmx2.1cmx2.3cm with a volume of 7.8ml. There are multiple small peripheral follicles. RIGHT OVARY: 4.0cmx 3.5cmx3.0cm with a volume of 21.5ml. There are multiple small peripheral follicles. Both ovaries are seen and appear polycystic. Doppler flow to both ovaries are seen. There is no fluid in the cul-de-sac. IMPRESSION: 1. Anteverted uterus normal in shape and size. The endometrium appears normal. 2. Both ovaries are seen and appear polycystic. 3. No fluid in the cul-de-sac. 4. There is a scar and 2 small cysts adjacent to the scar. They measure 5.6 mm and 4.6 mm. Dictated by: Ranjit Amos MD 01/13/2024 06:03 Ranjit Amos MD in OV 01/13/2024 06:03
== END 2024-01-12 23:59 | disposition home or self-care (01) ==
LOC: RAD 13:01
PROVIDERS: PCP Nurse Practitioner Family; Visit Provider Nurse Practitioner Obstetrics & Gynecology
DX: N93.9 Abnormal uterine and vaginal bleeding, unspecified (principal)
CPT/HCPCS: 76830

== ENCOUNTER 2024-02-14 12:50 | Outpatient (CLI) | payer MEDICAID, SELFPAY ==
[2024-02-14 13:54] LABS: Alanine Aminotransferase 33 U/L (12-78); Albumin Level 4.5 g/dl (3.5-5.0); Albumin/Globulin Ratio 1.6 (1.1-1.8); Alkaline Phosphatase 89 U/L (38-126); Anion Gap 10.7 mEq/L (5-15); Aspartate Amino Transferase 30 U/L (14-36); Bilirubin,Total 0.7 mg/dl (0.2-1.3); Blood Urea Nitrogen 12 mg/dl (7-17); Calcium 9.4 mg/dl (8.4-10.2); Carbon Dioxide 22 mmol/L (22.0-30.0); Chloride 108 mmol/L (98-107); Estimated Glomerular Filt Rate 111 ml/min (>60); GFR (African American) 135 ML/MIN (>60); Globulin 2.8 g/dL (1.3-3.2); Glucose 83 mg/dl (74-100); Potassium 3.7 mmoL/L (3.5-5.1); Sodium 137 mmol/L (136-145); Total Protein,Serum 7.3 g/dl (6.3-8.2)
[2024-02-14 14:03] LABS: Basophils # 0.1 K/mm3 (0-0.2); Basophils % 0.6 % (0.1-2.0); Eosinophils # 0.2 K/mm3 (0.0-0.4); Hematocrit 48.9 % (37.0-47.0); Lymphocytes # 2.4 K/mm3 (0.7-4.5); Lymphocytes % 19.8 % (10-50); Mean Corpuscular HGB Conc 34.6 g/dL (31.8-35.4); Mean Corpuscular Hemoglobin 34.3 pg (27.0-31.2); Mean Corpuscular Volume 99.2 fl (81-99); Monocytes # 0.7 K/mm3 (0.1-1.0); Monocytes % 5.9 % (1.7-9.3); Neutrophils # 8.6 K/mm3 (1.8-7.8); Neutrophils % 71.6 % (37.0-80.0); Platelet Count 168 K/mm3 (142-424); Red Blood Count 4.94 M/mm3 (4.20-5.40); White Blood Count 12.1 K/mm3 (4.8-10.8)
[2024-02-14 14:37] LABS: HCG,Quantitative < 2 mIU/ml (0-5.42)
[2024-02-15 06:46] VITALS: BMI 24.0
[2024-02-15 07:12] LABS: Amphetamine/Metha Screen,Urine Negative ng/ml (<1000)
[2024-02-15 07:13] LABS: Barbiturates Screen,Urine Negative ng/ml (<200); Benzodiazepines Screen,Urine Negative ng/ml (<200)
[2024-02-15 07:14] LABS: Cannabinoid Screen,Urine Negative ng/ml (<50)
[2024-02-15 07:15] LABS: Cocaine Screen,Urine Negative ng/ml (<300)
[2024-02-15 07:16] LABS: Methadone Screen,Urine Negative ng/ml (<300); Opiate Screen,Urine Negative ng/ml (<300)
[2024-02-15 07:17] LABS: Phencyclidine Screen,Urine Negative ng/ml (<25)
== END 2024-02-14 23:59 | disposition home or self-care (01) ==
PROVIDERS: PCP Nurse Practitioner Family; Visit Provider Nurse Practitioner Obstetrics & Gynecology
DX: Z01.818 Encounter for other preprocedural examination (principal); N92.0 Excessive and frequent menstruation with regular cycle
CPT/HCPCS: 80053; 80307; 84702; 85025

== ENCOUNTER → 2024-02-21 06:00 | Day surgery (SDC) | payer MEDICAID, SELFPAY ==
[2024-02-14 14:00] VITALS: BMI 24.0
[2024-02-21] VITALS (10 sets, daily range): BP systolic 109–154; BP diastolic 72–94; PULSE 74–97; RESP 16–18; TEMP 36.2–36.8; O2SAT 93–97
[2024-02-21] MEDS: 0.9 % SODIUM CHLORIDE 1000ML 1,000 ML 25 ML IV (06:35)
--- NOTE | 2024-02-21 06:52 | P.PNANES_ITS ---
[facility] Disclaimer: The information contained in this section may have been updated after the patient was seen, as this information can be updated by other users. Medical History Abnormal uterine bleeding Asthma GERD (gastroesophageal reflux disease) Anxiety Finger laceration Surgical History History of delivery Family History Mother Hypertension Father CHF (congestive heart failure) COPD (chronic obstructive pulmonary disease) Hypertension Other Family history of brain aneurysm Family history of diabetes mellitus Social History (Updated 02/21/24 @ 06:23 by Tere Viveros RN) Smoking Status: Current every day smoker alcohol intake: never substance use type: denies use current occupational status: unemployed Travel in the last 8 weeks: None [facility] Anesthesia Checklist Patient Identification Patient Identification: Arm Band and Family Structural Data Admitted From: Home Planned Operative Procedure/s: Histrocopy, D & C, Novasure. Consent for Planned Operative Procedure(s) Verified: Yes Verified Documents: Surgical Consent and History and Physical NPO Status Verified Time NPO: 00:00 Additional verifications Patient : No Anesthesia Reactions: No Hx Blood Transfusions: No Blood Transfusion Reaction: No Cephalosporin Allergy: Yes Previous Colonoscopy: Yes Airway Assessment Mallampati Score:: Class III C-Spine Mobility Assessed: Yes TMJ Mobility Assessed: Yes Dentition: Good Dentition Neurological Assessment Level of Consciousness: Awake, Alert, Appropriate and Follows Commands Hx Seizures: No Numbness or tingling in extremities: No Anesthesia Plan Anesthesia Risk discussed: Yes ASA Class: I Anesthesia Type: General
[2024-02-21] MEDS: CLINDAMYCIN PHOSPHATE/D5W 900 MG/50 ML PIGGYBACK 50 MG (07:24)
[2024-02-21] MEDS: SODIUM CHLORIDE IRRIG SOLUTION 3,000 ML 200 ML IR (07:35)
[2024-02-21] MEDS: ROPIVACAINE 0.5% 30ML VIAL 150 MG (07:41)
--- NOTE | 2024-02-21 07:56 | EXP.OP.NOTE ---
Date of procedure: 02/21/24 Pre-op Diagnosis:: Menorrhagia Post-op Diagnosis:: Menorrhagia Procedure performed:: Hysteroscopy, dilation and curettage, NovaSure ablation Surgeon:: Ranjit Amos MD MAKEUP ARTISTRY INSTRUCTOR:: Waylon Isaac Anesthesia: LMA Estimated blood loss (mL): 50 Clinical Note:: She is a 38-year-old lady who complains of extremely heavy blood loss with her periods. Ultrasound was essentially normal. After having discussed the risk and benefits she elected to have a hysteroscopy, D&C and NovaSure ablation. Operative findings:: She had an anteverted uterus that sounded to 9 cm. The endometrial cavity was 6.5 cm long and 3.9 cm wide. Operative note:: She was taken to the operating room where LMA anesthesia was found be adequate. She was prepped and draped in the normal sterile fashion in the lithotomy position. A weighted speculum was placed in the vagina and the anterior lip of the cervix was grasped with a tenaculum. The cervix was then dilated to approximately 6 mm. I then inserted a hysteroscope into the uterine cavity and the findings were as previously dictated. I then performed a gentle curettage with a medium curette. I then sounded the uterus and determine the length of the uterus. I then inserted the NovaSure device and determine the width of the endometrial cavity. The length was 6.5 cm and the width was 3.9 cm. This was placed into the NovaSure device. I then ran the device through its program. I further inspected the endometrial cavity and was found to be completely charred. I then injected 30 cc of 0.5% ropivacaine at the 3:00, 5:00, 7:00, and 9:00 positions of the cervix. She tolerated procedure well and was taken to the recovery room in excellent condition. All sponge and instrument counts were correct. The estimated blood loss was less than 50 cc. Condition: stable Disposition: PACU Specimens:: Endometrial curettings Complications:: None
--- NOTE | 2024-02-21 07:57 | P.PNANES_ITS ---
[facility] Anesthesia Record Part I Anesthesia Record I Intake, IV Amount: 600 Hydration: Adequate Estimated blood loss (mL): 49 Urine output (mL): 0 Blood Products used (#): none Blood Pressure: 133/80 SaO2: 94 Pulse Rate: 84 Airway Patency: Patent Respiratory Rate: 16 Temperature: 97.2 F Patient is:: Drowsy and Stable
--- NOTE | 2024-02-21 14:40 | P.PNANES_ITS ---
[facility] Anesthesia Record Part II Anesthesia Record Part II Discharge Time: 08:24 Destination: Surgical Day Care (OP Surgery) PACU nurse assessment reviewed?: Yes Patient Condition:: Good Anesthesia Complications:: None Swallowing reflex intact?: Yes Airway Patency: Patent Cyanosis?: No Blood Pressure: 142/94 SaO2: 97 Respiratory Rate: 16 Pulse Rate: 83 Temperature: 97.2 F Mental Status: Alert & Oriented Pain level:: 0 Nausea and/or vomitting:: None Intake, IV Amount: 0 Hydration: Adequate
== END | disposition home or self-care (01) ==
PROVIDERS: PCP Nurse Practitioner Family; Visit Provider Nurse Practitioner Obstetrics & Gynecology
PROC: 0U5B8ZZ Destruction of Endometrium, Via Natural or Artificial Opening Endoscopic (ICD-10-PCS; CPT 58563; principal; 2024-02-21 07:30)
DX: N92.0 Excessive and frequent menstruation with regular cycle (principal)
CPT/HCPCS: 58563; 96374; J0736; J1100; J2250; J3010; J7030

== ENCOUNTER 2024-07-23 19:46 | Emergency (ER) | payer MEDICAID, SELFPAY ==
[2024-07-23 19:49] VITALS: BP 122/77; PULSE 92; RESP 18; TEMP 36.8; O2SAT 96; BMI 28.9
--- NOTE | 2024-07-23 19:56 | PC.NURSE ---
Pt unable to provide urine sample.
--- NOTE | 2024-07-23 19:57 | HMH.EDGENADL ---
Discharge Plan Disposition Patient Disposition: Admitted Chief Complaint: Abdominal Pain Prescriptions Prescriptions: No Action sertraline 100 mg tablet 100 mg PO DAILY Qty: 90 3RF famotidine 20 mg tablet 20 mg PO BID Qty: 180 3RF ketorolac 10 mg tablet 10 mg PO Q6H Qty: 20 0RF Rx Instructions: maximum total duration of 5 days from all oral, intranasal, or parenteral formulations promethazine 25 mg tablet 25 mg PO TID PRN (Reason: nausea and vomiting) Qty: 15 0RF Referrals Follow up/Referrals: Twyla Childs APRN [Primary Care Provider] - See instructions Clinical Impressions Clinical Impression: Acute nontraumatic kidney injury, Sigmoid diverticulitis Instructions Patient Instructions: DI for Acute Abdominal Pain Print Language Print Language: Welsh Discharge ED Provider: Jl Case General Adult HPI <ONELIA Terry - Last Filed: 07/23/24 21:40> General Chief complaint: Abdominal Pain Stated complaint: Right side pain,no V/N Time Seen by Provider: 07/23/24 19:57 Mode of Arrival: Ambulatory Source of Information: Patient Description of Symptoms (Recalled from ER Triage Doc. by RN): Pt presents with c/o RLQ abd pain x 1 day. Denies any n/v/d/urinary sx History of Present Illness HPI narrative: Patient presents for evaluation of right lower quadrant abdominal pain. Patient states the pain started last night. She has had some nausea but no vomiting diarrhea fever chills hemoptysis hematochezia melena. Patient called her PCP who sent her to the ER for evaluation. Related Data Previous Rx's ?Medication ?Instructions ?Recorded promethazine 25 mg tablet 25 mg PO TID PRN nausea and 09/05/23 vomiting #15 tabs famotidine 20 mg tablet 20 mg PO BID #180 tabs 11/24/23 sertraline 100 mg tablet 100 mg PO DAILY #90 tabs 11/24/23 ketorolac 10 mg tablet 10 mg PO Q6H #20 tabs 03/05/24 Allergies Allergy/AdvReac Type Severity Reaction Status Date / Time Iodinated Contrast Media Allergy Severe Difficulty Verified 07/23/24 15:54 Breathing latex Allergy Mild Rash Verified 07/23/24 15:54 ondansetron Allergy Mild Rash Verified 07/23/24 15:54 Penicillins Allergy Rash Verified 07/23/24 15:54 oxycodone AdvReac Mild Verified 07/23/24 15:54 PFSH <ONELIA Terry - Last Filed: 07/23/24 21:40> [facility] Disclaimer: The information contained in this section may have been updated after the patient was seen, as this information can be updated by other users. Medical History Diarrhea Abnormal uterine bleeding Asthma GERD (gastroesophageal reflux disease) Anxiety Finger laceration Surgical History History of delivery Family History Mother Hypertension Pancreatic cancer Father , age 60 CHF (congestive heart failure) COPD (chronic obstructive pulmonary disease) Hypertension Other Family history of brain aneurysm Family history of diabetes mellitus Social History Smoking Status: Current every day smoker alcohol intake: never substance use type: denies use current occupational status: unemployed Travel in the last 8 weeks: None Have you lived/traveled outside [place] in past 30 days?: No Contact w/someone who lives/traveled outside US past 30 days?: No Exposure to someone with infectious disease in past 14 days?: No Do you have a fever (greater than 100.4 F or 38 C)?: No Have you tested positive for COVID-19: No Exposed to someone with COVID-19 in past 14 days?: No Do you have a sore throat?: No Do you have a cough?: No Do you have any weakness?: No Do you have any diarrhea?: No Are you experiencing any unusual bleeding?: No Do you have any muscle aches/pain?: No Do you have any abdominal pain?: No Are you experiencing loss of taste or smell?: No <ONELIA Terry - Last Filed: 07/23/24 21:40> ROS Obtained: Yes Systems reviewed as appropriate & no additional complaints except as documented Physical Exam <ONELIA Terry - Last Filed: 07/23/24 21:40> General General appearance: alert and in no apparent distress Respiratory Respiratory exam: Present normal lung sounds bilaterally Cardiovascular Cardiovascular exam: Present regular rate Neurological Exam Neurological exam: Present alert and oriented X3 Medical Decision Making <ONELIA Terry - Last Filed: 07/23/24 21:40> Medical Records Medical records reviewed: Yes I reviewed the patient's medical records. Screening: Per USPSTF and CDC recommendations, given the prevalence of disease in our region, it is our hospital?s policy to screen for HIV and viral Hepatitis for all patients aged 18 and over and those with ongoing risk factors. [place] Inquiry Pt receiving controlled substance: No Vital Signs: 07/23/24 19:49 Temperature 98.3 F Temperature Source Oral Pulse Rate [Right] 92 H Respiratory Rate 18 Blood Pressure [Right Arm] 122/77 Blood Pressure Mean [Right Arm] 92 Blood Pressure Source [Right Arm] Automatic Cuff Blood Pressure Position [Right Arm] Sitting 02 Sat by Pulse Oximetry 96 Oxygen Delivery Method Room Air Lab Data Lab results reviewed: Yes I reviewed the patient's lab results. Lab Results 07/23/24 20:10: WBC 13.8 H, RBC 4.70, Hgb 15.9, Hct 44.1, MCV 93.8, MCH 33.8 H, MCHC 36.1 H, RDW 12.2, Plt Count 198, MPV 10.0, Neut % (Auto) 69.4, Lymph % (Auto) 23.0, Crook % (Auto) 5.8, Eos % (Auto) 1.4, Baso % (Auto) 0.4, Neut # (Auto) 9.6 H, Lymph # (Auto) 3.2, Crook # (Auto) 0.8, Eos # (Auto) 0.2, Baso # (Auto) 0.1, Sodium 139, Potassium 3.7, Chloride 107, Carbon Dioxide 24, Anion Gap 11.7, BUN 16, Creatinine 1.90 H, Estimated Creat Clear 43, Estimated GFR 29 L, Est GFR ( Amer) 35 L, Glucose 97, Calcium 8.6, Total Bilirubin 0.7, AST 29, ALT 31, Alkaline Phosphatase 91, Total Protein 6.8, Albumin 4.4, Globulin 2.4, Albumin/Globulin Ratio 1.8, Procalcitonin 0.043, Serum HCG, Qual Negative 07/23/24 21:20: Urine Color Yellow, Urine Appearance Clear, Urine pH 7.0, Ur Specific [place] 1.020, Urine Protein Negative, Urine Glucose (UA) Negative, Urine Ketones 1+, Urine Blood Trace-i, Urine Nitrate Negative, Urine Bilirubin Negative, Urine Urobilinogen 1.0, Ur Leukocyte Esterase Negative, Urine RBC Occasional, Urine WBC None, Ur Squamous Epith Cells Occasional 07/23/24 20:10 07/23/24 20:10 Orders (Tests/Meds): ED MEDICATIONS Generic Name Dose Route Start Last Admin Trade Name Freq PRN Reason Stop Dose Admin Sodium Chloride 1,430 mls @ 715 mls/hr 07/23/24 21:39 07/23/24 21:52 Sod Chlor 0.9% 1000ml Bag 30 ml/kg infuse over 2 hr (1430 ml) 07/23/24 23:38 715 mls/hr IV Administration .Q2H ONE Cefepime HCl 2 gm/ Sodium 100 mls @ 200 mls/hr 07/23/24 22:42 Chloride IV 07/23/24 23:11 ONCE ONE Metronidazole 500 mg in 100 mls @ 100 mls/hr 07/23/24 22:42 Flagyl 500mg/100ml Ivpb IV 07/23/24 23:41 ONCE ONE Discontinued Medications Generic Name Dose Route Start Last Admin Trade Name Freq PRN Reason Stop Dose Admin Acetaminophen 1,000 mg 07/23/24 20:00 07/23/24 20:42 Acetaminophen 500mg Tab PO 07/23/24 20:01 1,000 mg ONCE ONE Administration Sodium Chloride 1,000 mls @ 999 mls/hr 07/23/24 20:00 07/23/24 20:43 Sod Chlor 0.9% 1000ml Bag IV 07/23/24 21:00 999 mls/hr .Q1H1M ONE Administration ORDERS Category Date Time Status CT abdomen pelvis wo con Stat Cat Scan 07/23/24 20:09 Completed CBC w/Auto Diff [Complete Blood Count Auto Diff] Stat Lab 07/23/24 20:10 Completed CMP [Comprehensive Metabolic Panel] Stat Lab 07/23/24 20:10 Completed HCG Qualitative, Serum Stat Lab 07/23/24 20:10 Completed Procalcitonin Stat Lab 07/23/24 20:10 Completed UA [Urinalysis and Microscopic] Stat Lab 07/23/24 21:20 Completed Tissue Perfus/Sepsis Re-Eval Sepsis Re-Evaluation Performed: Yes Date Performed: 07/23/24 Time Performed: 21:27 Medical Decision Narrative: In summary patient is a 39-year-old female who presents to the emergency department for evaluation of right lower quadrant abdominal pain. Patient is hemodynamically stable with a blood pressure 122/77 heart rate 92 with normal sinus rhythm on bedside monitor breathing 18 times a minute satting 96% on room air upon arrival, afebrile at 98.3. Physical exam is remarkable for mild right lower quadrant tenderness over McBurney's point but there is no rebound or guarding no rigidity bowel sounds normal active.. Differential diagnosis includes ovarian cyst versus appendicitis versus constipation versus kidney stone versus urinary tract infection etc. Initial workup will be conducted with hematologic labs urinalysis CT scan abdomen pelvis. Initial interventions include crystalloid bolus Toradol Tylenol Zofran. Initial workup reviewed by me shows patient's white count is 13.8 with a neutrophilic shift of 9.6 absolute neutrophil count, acute kidney injury with a creatinine of 1.9 with a GFR of 29 and the remainder of her hematologic labs are nonactionable. My informal interpretation of her CT scan abdomen pelvis without contrast shows inflammation and stranding around the sigmoid colon consistent with diverticulitis. Given this I have given the patient a sepsis bolus addition to the initial crystalloid bolus and will plan to start her on Zosyn if radiology read confirms the diverticulitis. Care handed off to Dr. Case at 2200 hrs. awaiting read <Jl Case MD - Last Filed: 07/23/24 22:45> Vital Signs: 07/23/24 19:49 Temperature 98.3 F Temperature Source Oral Pulse Rate [Right] 92 H Respiratory Rate 18 Blood Pressure [Right Arm] 122/77 Blood Pressure Mean [Right Arm] 92 Blood Pressure Source [Right Arm] Automatic Cuff Blood Pressure Position [Right Arm] Sitting 02 Sat by Pulse Oximetry 96 Oxygen Delivery Method Room Air Lab Data Lab results reviewed: Yes I reviewed the patient's lab results. Lab Results 07/23/24 20:10: WBC 13.8 H, RBC 4.70, Hgb 15.9, Hct 44.1, MCV 93.8, MCH 33.8 H, MCHC 36.1 H, RDW 12.2, Plt Count 198, MPV 10.0, Neut % (Auto) 69.4, Lymph % (Auto) 23.0, [place] % (Auto) 5.8, Eos % (Auto) 1.4, Baso % (Auto) 0.4, Neut # (Auto) 9.6 H, Lymph # (Auto) 3.2, [place] # (Auto) 0.8, Eos # (Auto) 0.2, Baso # (Auto) 0.1, Sodium 139, Potassium 3.7, Chloride 107, Carbon Dioxide 24, Anion Gap 11.7, BUN 16, Creatinine 1.90 H, Estimated Creat Clear 43, Estimated GFR 29 L, Est GFR ( Amer) 35 L, Glucose 97, Calcium 8.6, Total Bilirubin 0.7, AST 29, ALT 31, Alkaline Phosphatase 91, Total Protein 6.8, Albumin 4.4, Globulin 2.4, Albumin/Globulin Ratio 1.8, Procalcitonin 0.043, Serum HCG, Qual Negative 07/23/24 21:20: Urine Color Yellow, Urine Appearance Clear, Urine pH 7.0, Ur Specific [place] 1.020, Urine Protein Negative, Urine Glucose (UA) Negative, Urine Ketones 1+, Urine Blood Trace-i, Urine Nitrate Negative, Urine Bilirubin Negative, Urine Urobilinogen 1.0, Ur Leukocyte Esterase Negative, Urine RBC Occasional, Urine WBC None, Ur Squamous Epith Cells Occasional Orders (Tests/Meds): ED MEDICATIONS Generic Name Dose Route Start Last Admin Trade Name Freq PRN Reason Stop Dose Admin Sodium Chloride 1,430 mls @ 715 mls/hr 07/23/24 21:39 07/23/24 21:52 Sod Chlor 0.9% 1000ml Bag 30 ml/kg infuse over 2 hr (1430 ml) 07/23/24 23:38 715 mls/hr IV Administration .Q2H ONE Cefepime HCl 2 gm/ Sodium 100 mls @ 200 mls/hr 07/23/24 22:42 Chloride IV 07/23/24 23:11 ONCE ONE Metronidazole 500 mg in 100 mls @ 100 mls/hr 07/23/24 22:42 Flagyl 500mg/100ml Ivpb IV 07/23/24 23:41 ONCE ONE Discontinued Medications Generic Name Dose Route Start Last Admin Trade Name Freq PRN Reason Stop Dose Admin Acetaminophen 1,000 mg 07/23/24 20:00 07/23/24 20:42 Acetaminophen 500mg Tab PO 07/23/24 20:01 1,000 mg ONCE ONE Administration Sodium Chloride 1,000 mls @ 999 mls/hr 07/23/24 20:00 07/23/24 20:43 Sod Chlor 0.9% 1000ml Bag IV 07/23/24 21:00 999 mls/hr .Q1H1M ONE Administration ORDERS Category Date Time Status CT abdomen pelvis wo con Stat Cat Scan 07/23/24 20:09 Completed CBC w/Auto Diff [Complete Blood Count Auto Diff] Stat Lab 07/23/24 20:10 Completed CMP [Comprehensive Metabolic Panel] Stat Lab 07/23/24 20:10 Completed HCG Qualitative, Serum Stat Lab 07/23/24 20:10 Completed Procalcitonin Stat Lab 07/23/24 20:10 Completed UA [Urinalysis and Microscopic] Stat Lab 07/23/24 21:20 Completed Medical Decision Narrative: In summary patient is a 39-year-old female who presents to the emergency department for evaluation of right lower quadrant abdominal pain. Patient is hemodynamically stable with a blood pressure 122/77 heart rate 92 with normal sinus rhythm on bedside monitor breathing 18 times a minute satting 96% on room air upon arrival, afebrile at 98.3. Physical exam is remarkable for mild right lower quadrant tenderness over McBurney's point but there is no rebound or guarding no rigidity bowel sounds normal active.. Differential diagnosis includes ovarian cyst versus appendicitis versus constipation versus kidney stone versus urinary tract infection etc. Initial workup will be conducted with hematologic labs urinalysis CT scan abdomen pelvis. Initial interventions include crystalloid bolus Toradol Tylenol Zofran. Initial workup reviewed by me shows patient's white count is 13.8 with a neutrophilic shift of 9.6 absolute neutrophil count, acute kidney injury with a creatinine of 1.9 with a GFR of 29 and the remainder of her hematologic labs are nonactionable. My informal interpretation of her CT scan abdomen pelvis without contrast shows inflammation and stranding around the sigmoid colon consistent with diverticulitis. Given this I have given the patient a sepsis bolus addition to the initial crystalloid bolus and will plan to start her on Zosyn if radiology read confirms the diverticulitis. Care handed off to Dr. Case at 2200 hrs. awaiting read Reassessment [id number] Case. On my abdominal exam she does have focal tenderness over the suprapubic region which is the location of her diverticulitis which we saw on my personal interpretation of the CT scan radiology read is consistent with this as well no evidence of any perforation or abscess formation. With her acute kidney injury we will also keep her in the hospital for rehydration and continued assessments of her kidney functioning. She has a penicillin allergy she was initiated on cefepime and Flagyl and admitted in a stable condition. Critical Care <ONELIA Terry - Last Filed: 07/23/24 21:40> Critical Care Time Critical Care Time: Yes Attestation: On 07/23/24, the high probability of a clinically significant, sudden or life threatening deterioration of the following system(s) required my full and direct attention, intervention and personal management. The time I documented below is in addition to time spent performing reported procedures but includes the following listed in this critical care notation. Total Time Total Critical Care Time: 35
--- NOTE | 2024-07-23 20:09 | CT_ITS ---
PROCEDURE INFORMATION: Exam: CT Abdomen And Pelvis Without Contrast Exam date and time: 07/23/2024 9:21 PM Age: 39 years old Clinical indication: Abdominal pain; Additional info: Right lower quadrant abdominal pain TECHNIQUE: Imaging protocol: Computed tomography of the abdomen and pelvis without contrast. Radiation optimization: All CT scans at this facility use at least one of these dose optimization techniques: automated exposure control; mA and/or kV adjustment per patient size (includes targeted exams where dose is matched to clinical indication); or iterative reconstruction. COMPARISON: US TRANSVAGINAL 01/12/2024 12:58 PM FINDINGS: Liver: Normal. No mass. Gallbladder and biliary ducts: Normal. No calcified stones. No ductal dilation. Pancreas: Normal. No ductal dilation. Spleen: Normal. No splenomegaly. Adrenal glands: There is multilobulated benign adenomatous enlargement of the adrenal glands, no further followup recommended. Kidneys and ureters: Normal. No hydronephrosis. Stomach and bowel: There are multiple diverticula throughout the sigmoid colon, with subjacent inflammatory changes compatible with diverticulitis. Appendix: No evidence of appendicitis. Intraperitoneal space: Unremarkable. No free air. No significant fluid collection. Vasculature: Mild calcific atherosclerotic disease is scattered throughout the abdominal aorta without aneurysmal dilatation. Lymph nodes: Unremarkable. No enlarged lymph nodes. Urinary bladder: Bladder is decompressed limiting its evaluation. Reproductive: Unremarkable as visualized. Bones/joints: Unremarkable. No acute fracture. Soft tissues: Normal. IMPRESSION: Acute diverticulitis as described above without evidence of colonic perforation or abscess.
[2024-07-23 20:22] LABS: Basophils # 0.1 K/mm3 (0-0.2); Basophils % 0.4 % (0.1-2.0); Eosinophils # 0.2 K/mm3 (0.0-0.4); Eosinophils % 1.4 % (0.1-12.0); Hematocrit 44.1 % (37.0-47.0); Hemoglobin 15.9 g/dL (12.2-16.2); Lymphocytes # 3.2 K/mm3 (0.7-4.5); Mean Corpuscular HGB Conc 36.1 g/dL (31.8-35.4); Mean Corpuscular Hemoglobin 33.8 pg (27.0-31.2); Mean Corpuscular Volume 93.8 fl (81-99); Monocytes # 0.8 K/mm3 (0.1-1.0); Monocytes % 5.8 % (1.7-9.3); Neutrophils # 9.6 K/mm3 (1.8-7.8); Neutrophils % 69.4 % (37.0-80.0); Platelet Count 198 K/mm3 (142-424); Red Cell Distribution Width 12.2 % (11.5-17.5); White Blood Count 13.8 K/mm3 (4.8-10.8)
[2024-07-23] MEDS: ACETAMINOPHEN 500MG TAB 1000 MG PO (20:42)
[2024-07-23 20:43] LABS: Albumin Level 4.4 g/dl (3.5-5.0); Chloride 107 mmol/L (98-107); Potassium 3.7 mmoL/L (3.5-5.1); Sodium 139 mmol/L (136-145)
[2024-07-23] MEDS: 0.9 % SODIUM CHLORIDE 1000ML 1,000 ML 999 ML IV (20:43)
[2024-07-23 20:46] LABS: Alanine Aminotransferase 31 U/L (12-78); Albumin/Globulin Ratio 1.8 (1.1-1.8); Alkaline Phosphatase 91 U/L (38-126); Anion Gap 11.7 mEq/L (5-15); Aspartate Amino Transferase 29 U/L (14-36); Bilirubin,Total 0.7 mg/dl (0.2-1.3); Blood Urea Nitrogen 16 mg/dl (7-17); Carbon Dioxide 24 mmol/L (22.0-30.0); Creatinine Clearance Estimated 43 mL/min (50-200); Estimated Glomerular Filt Rate 29 ml/min (>60); GFR (African American) 35 ML/MIN (>60); Globulin 2.4 g/dL (1.3-3.2); Total Protein,Serum 6.8 g/dl (6.3-8.2)
[2024-07-23 20:47] LABS: Calcium 8.6 mg/dl (8.4-10.2); Glucose 97 mg/dl (74-100)
[2024-07-23 21:01] VITALS: BP 129/76; PULSE 80; O2SAT 95
[2024-07-23 21:09] LABS: HCG Qualitative, Serum Negative (Negative)
[2024-07-23 21:30] VITALS: BP 115/77; PULSE 80; O2SAT 95
[2024-07-23 21:31] LABS: Microscopic, Urine URINE MICROSCOPIC (MICROSCOPIC)
[2024-07-23 21:37] LABS: Procalcitonin 0.043 ng/mL (0.0-2.0)
[2024-07-23] MEDS: 0.9 % SODIUM CHLORIDE 1000ML 1,430 ML 715 ML IV (21:52)
[2024-07-23 22:00] VITALS: BP 129/85; PULSE 78; O2SAT 96
[2024-07-23 22:16] LABS: Appearance,Urine CLEAR (Clear); Bilirubin,Urine Negative (Negative); Blood, Urine TRACE-I (Negative); Color,Urine YELLOW (Yellow); Glucose,Urine (UA) Negative (Negative); Ketones,Urine 1+ (Negative); Leukocyte Esterase,Urine Negative (Negative); Nitrate,Urine Negative (Negative); Protein,Urine Negative (Negative)
[2024-07-23 22:29] LABS: RBC,Urine Occasional #/hpf (0-3); Squamous Epithelial Cell,Urine Occasional #/hpf (0-5)
[2024-07-23] MEDS: METRONIDAZ/SOD CHL 500 MG/100 ML PIGGYBACK 100 MG IV (22:46)
[2024-07-23] MEDS: CEFEPIME HCL 2 GM in 0.9 % SODIUM CHLORIDE 100 ML IV (22:46)
[2024-07-23 23:01] VITALS: BP 00/00; PULSE 0; RESP 0; TEMP -17.7; TEMP 0; O2SAT 0
--- NOTE | 2024-07-23 23:02 | PC.NURSE ---
pt expressed not wanting to stay for admission unless she could go out side and smoke, this RN spoke with the patient and explained the the hospital policy regarding a smoke free campus and leaving with an IV, I explained to patient that she would have to sign out AMA and the risks and benefits associated with leaving against medical advice. Patient then stated she needed to leave because she was worried about missing work. Patient confirmed she wanted to leave AMA and would rather follow up with her PCP. This RN removed her IV and had the AMA form signed. Patient left department.
== END 2024-07-23 23:04 | disposition left against medical advice (07) ==
PROVIDERS: Physician Assistant; Emergency Provider Student in an Organized Health Care Education/Training Program; PCP Nurse Practitioner Family
DX: K57.32 Diverticulitis of large intestine without perforation or abscess without bleeding (principal); N17.9 Acute kidney failure, unspecified; R10.31 Right lower quadrant pain; R11.0 Nausea; Z72.0 Tobacco use
CPT/HCPCS: 74176; 80053; 81001; 84145; 84703; 85025; 96360; 96361; 99291; J7030

== ENCOUNTER 2025-02-06 10:00 | Outpatient (CLI) | payer MEDICAID, SELFPAY ==
[2025-02-06 16:35] LABS: Hematocrit 47.8 % (37.0-47.0); Hemoglobin 16.7 g/dL (12.2-16.2); Immature Granulocytes % 0.6 %; Mean Corpuscular HGB Conc 34.9 g/dL (31.8-35.4); Mean Corpuscular Hemoglobin 33.3 pg (27.0-31.2); Mean Corpuscular Volume 95.4 fl (81-99); Nucleated Red Blood Cells % 0 %; Platelet Count 211 K/mm3 (142-424); Red Blood Count 5.01 M/mm3 (4.20-5.40); Red Cell Distribution Width-SD 44.0 fL; White Blood Count 11.8 K/mm3 (4.8-10.8)
[2025-02-06 18:02] LABS: Alanine Aminotransferase 32 U/L (12-78); Albumin Level 4.2 g/dl (3.5-5.0); Albumin/Globulin Ratio 1.7 (1.1-1.8); Alkaline Phosphatase 130 U/L (38-126); Anion Gap 15.2 mEq/L (5-15); Aspartate Amino Transferase 30 U/L (14-36); Bilirubin,Total 0.6 mg/dl (0.2-1.3); Blood Urea Nitrogen 15 mg/dl (7-17); Calcium 8.9 mg/dl (8.4-10.2); Carbon Dioxide 23 mmol/L (22.0-30.0); Chloride 107 mmol/L (98-107); Creatinine,Serum 0.70 mg/dl (0.52-1.04); Estimated Glomerular Filt Rate 93 ml/min (>60); GFR (African American) 112 ML/MIN (>60); Globulin 2.5 g/dL (1.3-3.2); Glucose 94 mg/dl (74-100); Potassium 4.2 mmoL/L (3.5-5.1); Sodium 141 mmol/L (136-145); Total Protein,Serum 6.7 g/dl (6.3-8.2)
--- OUTSIDE RECORDS SUMMARY | 2025-02-07 12:10 | XMS_ITS | Patient Health Record ---
Author Organization [facility] Address [address] [place] [address] Care Team Providers Care Loop Sewer Name Role Phone Unknown, PCP Primary Care Provider Unavailabl e Reason For Referral No Information Immunizations Vaccine Route Administration Date Status Comme nts PPD Aplisol ID Intradermal 04/16/2020 Administered Plan Of Treatment No Information Insurance Providers Payer Name Payer Address Payer Phone Subscriber Number Group Number Insured Name Patient Relationship to Insured Coverage Start Date Coverage End Date PROMPT PAY/Bill to Patient MYRIAM URENA Self - patient is the insured
== END 2025-02-06 23:59 | disposition home or self-care (01) ==
LOC: LAB.DROPOF 02-07 12:07
PROVIDERS: PCP Nurse Practitioner; Visit Provider Nurse Practitioner
DX: N64.52 Nipple discharge (principal); N64.4 Mastodynia
CPT/HCPCS: 36415; 80053; 85025

== ENCOUNTER 2025-02-13 12:35 | Outpatient (CLI) | payer MEDICAID, SELFPAY ==
[2025-02-13 15:14] LABS: Hematocrit 43.6 % (37.0-47.0); Hemoglobin 15.5 g/dL (12.2-16.2); Immature Granulocytes % 0.6 %; Mean Corpuscular HGB Conc 35.6 g/dL (31.8-35.4); Mean Corpuscular Hemoglobin 33.6 pg (27.0-31.2); Mean Corpuscular Volume 94.6 fl (81-99); Nucleated Red Blood Cells % 0 %; Platelet Count 122 K/mm3 (142-424); Red Blood Count 4.61 M/mm3 (4.20-5.40); Red Cell Distribution Width-SD 42.3 fL; White Blood Count 13.7 K/mm3 (4.8-10.8)
[2025-02-13 15:49] LABS: Alanine Aminotransferase 26 U/L (12-78); Albumin Level 3.8 g/dl (3.5-5.0); Albumin/Globulin Ratio 1.5 (1.1-1.8); Alkaline Phosphatase 107 U/L (38-126); Anion Gap 12.9 mEq/L (5-15); Aspartate Amino Transferase 28 U/L (14-36); Bilirubin,Total 0.9 mg/dl (0.2-1.3); Blood Urea Nitrogen 8 mg/dl (7-17); Calcium 8.7 mg/dl (8.4-10.2); Carbon Dioxide 23 mmol/L (22.0-30.0); Chloride 106 mmol/L (98-107); Creatinine,Serum 0.60 mg/dl (0.52-1.04); Estimated Glomerular Filt Rate 111 ml/min (>60); GFR (African American) 134 ML/MIN (>60); Globulin 2.6 g/dL (1.3-3.2); Glucose 96 mg/dl (74-100); Potassium 3.9 mmoL/L (3.5-5.1); Sodium 138 mmol/L (136-145); Total Protein,Serum 6.4 g/dl (6.3-8.2)
--- OUTSIDE RECORDS SUMMARY | 2025-02-14 12:56 | XMS_ITS | Patient Health Record ---
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
== END 2025-02-13 23:59 | disposition home or self-care (01) ==
LOC: LAB.DROPOF 02-14 12:49
PROVIDERS: PCP Nurse Practitioner; Visit Provider Nurse Practitioner
DX: R10.30 Lower abdominal pain, unspecified (principal)
CPT/HCPCS: 80053; 85025

== ENCOUNTER 2025-02-14 12:00 | Outpatient (CLI) | payer MEDICAID, SELFPAY ==
[2025-02-14 15:20] LABS: Microscopic, Urine URINE MICROSCOPIC (MICROSCOPIC)
[2025-02-14 15:38] LABS: Bilirubin,Urine Negative (Negative); Color,Urine YELLOW (Yellow); Glucose,Urine (UA) Negative (Negative); Ketones,Urine Negative (Negative); Leukocyte Esterase,Urine Negative (Negative); PH,Urine 7.0 (5.0-8.5); Protein,Urine Negative (Negative); Specific Gravity, Urine 1.025 (1.005-1.030); Urobilinogen,Urine 0.2 EU/dl (0.2)
[2025-02-14 18:10] LABS: Bacteria,Urine Trace /lpf; Mucus,Urine 1+ /lpf; RBC,Urine 20-50 #/hpf (0-3); WBC,Urine Occasional #/hpf (0-3)
--- OUTSIDE RECORDS SUMMARY | 2025-02-15 11:17 | XMS_ITS | Patient Health Record ---
Author Organization [facility] Address [address] [place] [address] Care Team Providers Care [employer] Name Role Phone Unknown, PCP Primary Care [...]
== END 2025-02-14 23:59 ==
LOC: LAB.DROPOF 02-15 11:01
PROVIDERS: PCP Nurse Practitioner; Visit Provider Nurse Practitioner
DX: R10.30 Lower abdominal pain, unspecified (principal); R35.0 Frequency of micturition
CPT/HCPCS: 81001